=== PATIENT | male | born 1980 | race Hispanic/Latino ===

== ENCOUNTER 2018-09-05 09:22 | Day surgery (SDC) | payer OTHER ==
[2018-09-05] MEDS ORDERED: DIPRIVAN 200 MG/20 ML IV ONE (09:23)
[2018-09-05] MEDS ORDERED: Versed 2 MG/2 ML Injection IV ONE (09:23)
[2018-09-05] MEDS ORDERED: Tobrex OPHTH. OINTMENT OP ONE (09:23)
[2018-09-05] MEDS ORDERED: Lactated Ringers 1,000 ML IV ONE (10:24)
[2018-09-05] MEDS ORDERED: Lactated Ringers 1,000 ML IV SCH (10:30)
[2018-09-05 12:38] VITALS: BP 124/82; PULSE 66; O2SAT 99
--- NOTE | 2018-09-05 15:12 | OP ---
DATE/TIME OF OPERATION: 09/05/2018 1115 TIME DICTATED: 1146 PREOPERATIVE DIAGNOSIS: Chalazion upper lid left eye. POSTOPERATIVE DIAGNOSIS: Chalazion upper lid left eye. SURGEON: Wesley Faith MD [employer] INTERN: None. OPERATION: Excision of chalazion upper lid left eye surgery. ANESTHESIA: MAC. Monitored IV sedation. ANESTHESIA PROVIDER: Galileo Suarez CRNA. DESCRIPTION OF PROCEDURE: IV was started on the patient. IV sedation was administered in the operating room. The patient was prepped and draped in the usual way for this procedure. Using the chalazion clamp, the upper eye lid was clamped at the site of the chalazion and the eye lid was everted. The chalazion was entered using a sharp knife. A curette incision was made. Curettes were used to remove the inflammatory tissue that was present in the chalazion sites that was sent to the lab. Maxitral eye ointment was placed in the conjunctiva of the sac. Eye patch was placed on the eye. Patient tolerated the procedure and left the operating room in satisfactory condition.
== END 2018-09-05 12:30 | disposition home or self-care (01) ==
LOC: SDC 09:22
PROVIDERS: ATTEND Ophthalmology
DX: H00.14 Chalazion left upper eyelid (principal)
CPT/HCPCS: J2250; J2704; A9270-GY